=== PATIENT | female | born 1955 | race Caucasian/White ===

== ENCOUNTER 2016-12-08 05:37 | Day surgery (SDC) | payer OTHER ==
[~2016-12-08 05:37] MED LIST: AMITRIPTYLINE H75 M1 PO; CORGARD20 M2 PO; MOBIC15 M2 PO; MULTI VITAMIN1 EAC2 PO; PROTONIX40 M2 PO
== END 2016-12-08 10:06 ==
LOC: SRG 05:37 → SHSB 05:41 → ORE 08:06
PROC: 0HX1XZZ Transfer Face Skin, External Approach (ICD-10-PCS; principal; 2016-12-08)
DX: C44.112 Basal cell carcinoma of skin of right eyelid, including canthus (principal); M19.90 Unspecified osteoarthritis, unspecified site; R51 Headache; K21.9 Gastro-esophageal reflux disease without esophagitis; Z79.1 Long term (current) use of non-steroidal anti-inflammatories (NSAID); Z79.899 Other long term (current) drug therapy; Z88.1 Allergy status to other antibiotic agents; Z88.2 Allergy status to sulfonamides